=== PATIENT | male | born 1955 | race Caucasian/White ===

== ENCOUNTER 2017-02-17 20:10 | Inpatient (IN) | payer MEDICARE, MEDICAID ==
[~2017-02-17] VITALS: Ht 188 cm; Wt 72.0 kg
[~2017-02-17 20:10] MED LIST: ARIP2TAB11 PO; CITA40TA11 PO; GABA100C PO; TRAZ-143 PO
[2017-02-17] MEDS ORDERED: hydrOXYzine 25 MG tablet PO PRN (21:00)
[2017-02-17] MEDS ORDERED: magnesium hydroxide 30ml (MOM) UD suspension PO PRN (21:00)
[2017-02-17] MEDS ORDERED: mag hydrox/Alum hydrox/simeth 30ml oral suspension PO PRN (21:00)
[2017-02-17] MEDS ORDERED: traZODone 50mg tablet PO PRN (21:00)
[2017-02-17 21:57] VITALS: BP 112/69
[2017-02-18 07:19] VITALS: BP 107/61
[2017-02-18 08:31] LABS: CHOL/HDL RATIO 3.3 (0.00-4.99); CHOLESTEROL 91 MG/DL (0-200); HDL CHOLESTEROL 28 MG/DL (35-60); LDL CHOLESTEROL 60 MG/DL (50-100); TRIGLYCERIDES 65 MG/DL (20-135)
[2017-02-18] MEDS ORDERED: CITALOpram 10mg tablet PO ONE (09:30)
[2017-02-18] MEDS: acetaminophen 325mg tablet PO PRN (11:58)
[2017-02-18] MEDS: Protein Shake (high protein) 240ml (8oz) cup PO SCH ×2 (14:47→18:02)
[2017-02-18] MEDS: Protein Smoothie (high protein) 240ml (8oz) cup PO SCH ×2 (14:47→18:02)
[2017-02-18 19:46] VITALS: BP 123/55
[2017-02-19 07:25] VITALS: BP 113/62
[2017-02-19] MEDS: traZODone 50mg tablet PO SCH ×2 (08:25→21:07)
[2017-02-19] MEDS: CITALOpram 10mg tablet PO SCH (08:33)
[2017-02-19] MEDS: Protein Shake (high protein) 240ml (8oz) cup PO SCH ×3 (08:59→18:00)
[2017-02-19] MEDS: Protein Smoothie (high protein) 240ml (8oz) cup PO SCH ×3 (08:59→18:00)
[2017-02-19] MEDS: naproxen 500mg tablet PO PRN (16:41)
[2017-02-19 19:17] VITALS: BP 104/43
[2017-02-19] MEDS: acetaminophen 325mg tablet PO PRN (21:13)
[2017-02-20 07:28] VITALS: BP 99/49
[2017-02-20] MEDS: CITALOpram 10mg tablet PO SCH (07:39)
[2017-02-20] MEDS: Protein Smoothie (high protein) 240ml (8oz) cup PO SCH ×3 (08:00→17:52)
[2017-02-20] MEDS: Protein Shake (high protein) 240ml (8oz) cup PO SCH ×3 (08:53→17:52)
[2017-02-20 20:00] VITALS: BP 98/41
[2017-02-20] MEDS: traZODone 50mg tablet PO SCH (20:50)
[2017-02-20] MEDS: neomy sulf/bacitrac zn/polymixin b oint 14.2 gm tube TP SCH (20:51)
[2017-02-21 07:55] VITALS: BP 100/44
[2017-02-21] MEDS: CITALOpram 10mg tablet PO SCH (07:59)
[2017-02-21] MEDS: neomy sulf/bacitrac zn/polymixin b oint 14.2 gm tube TP SCH ×3 (08:00→20:53)
[2017-02-21] MEDS: Protein Smoothie (high protein) 240ml (8oz) cup PO SCH ×3 (08:00→18:00)
[2017-02-21] MEDS: Protein Shake (high protein) 240ml (8oz) cup PO SCH ×3 (08:00→18:00)
[2017-02-21 18:40] LABS: BASOPHILS % (AUTO) 0.2 % (0-1); EOSINOPHILS # (AUTO) 0.3 X10'3 (0-0.9); EOSINOPHILS % (AUTO) 2.6 % (0-6); HEMATOCRIT 41.3 % (42.0-52.0); HEMOGLOBIN 13.7 g/dl (14.0-17.9); LYMPHOCYTES # (AUTO) 2.4 X10'3 (1.1-4.8); LYMPHOCYTES % (AUTO) 22.3 % (21-51); MEAN CORPUSCULAR HEMOGLOBIN 29.8 PG (27.0-31.0); MEAN CORPUSCULAR HGB CONC 33.1 % (33.0-36.5); MEAN CORPUSCULAR VOLUME 90.3 FL (78-98); MEAN PLATELET VOLUME 6.2 FL (7.4-10.4); MONOCYTES # (AUTO) 0.6 X10'3 (0-0.9); MONOCYTES % (AUTO) 5.3 % (2-12); NEUTROPHILS # (AUTO) 7.6 X10'3 (1.8-7.7); NEUTROPHILS % (AUTO) 69.6 % (42-75); PLATELET COUNT 333 X10'3 (140-440); RED BLOOD COUNT 4.58 X10'6 (4.70-6.10); RED CELL DISTRIBUTION WIDTH 14.3 % (11.5-14.5); WHITE BLOOD COUNT 10.9 X10'3 (4.5-11.0)
[2017-02-21 18:53] LABS: ALANINE AMINOTRANSFERASE 43 U/L (12-78); ALBUMIN 2.5 G/DL (3.4-5.0); ALBUMIN/GLOBULIN RATIO 0.6 (1.1-1.5); ALKALINE PHOSPHATASE 104 IU/L (46-116); ANION GAP 1 (8-16); ASPARTATE AMINO TRANSFERASE 27 U/L (10-37); BILIRUBIN,TOTAL 0.3 MG/DL (0.1-1.0); BLOOD UREA NITROGEN 28 MG/DL (7-18); BUN/CREATININE RATIO 24.8 (5.4-32.0); CALCIUM 8.9 MG/DL (8.5-10.1); CHLORIDE 100 MMOL/L (99-107); CREATININE 1.13 MG/DL (0.60-1.10); GLUCOSE 133 MG/DL (70-104); POTASSIUM 4.5 MMOL/L (3.5-5.1); SODIUM 136 MMOL/L (135-145); TOTAL CARBON DIOXIDE 34.8 MMOL/L (24-32); TOTAL PROTEIN 6.7 G/DL (6.4-8.2); eGFR 66 ML/MIN
[2017-02-21 20:00] VITALS: BP 98/52
[2017-02-21] MEDS: traZODone 50mg tablet PO SCH (20:51)
[2017-02-21] MEDS: naproxen 500mg tablet PO PRN (20:52)
[2017-02-21] MEDS: cephalexin 500mg capsule PO SCH (20:52)
[2017-02-21] MEDS: aripiprazole 5mg tablet PO SCH (20:52)
[2017-02-22] MEDS: cephalexin 500mg capsule PO SCH ×4 (01:55→20:54)
[2017-02-22 08:00] VITALS: BP 99/47
[2017-02-22] MEDS: neomy sulf/bacitrac zn/polymixin b oint 14.2 gm tube TP SCH ×3 (08:00→20:56)
[2017-02-22] MEDS: Protein Smoothie (high protein) 240ml (8oz) cup PO SCH ×4 (08:00→18:00)
[2017-02-22] MEDS: CITALOpram 10mg tablet PO SCH (08:16)
[2017-02-22] MEDS: Protein Shake (high protein) 240ml (8oz) cup PO SCH ×3 (08:17→18:00)
[2017-02-22] MEDS: lactobacillus rhamnosus 10,000 MMU CELLS/CAPSULE PO SCH (17:44)
[2017-02-22 19:10] VITALS: BP 100/48
[2017-02-22] MEDS: aripiprazole 5mg tablet PO SCH (20:54)
[2017-02-22] MEDS: traZODone 50mg tablet PO SCH (20:54)
[2017-02-23] MEDS: cephalexin 500mg capsule PO SCH ×4 (02:20→20:22)
[2017-02-23] MEDS: lactobacillus rhamnosus 10,000 MMU CELLS/CAPSULE PO SCH ×2 (07:17→17:48)
[2017-02-23 08:11] VITALS: BP 93/54
[2017-02-23] MEDS: Protein Smoothie (high protein) 240ml (8oz) cup PO SCH ×3 (08:29→18:00)
[2017-02-23] MEDS: Protein Shake (high protein) 240ml (8oz) cup PO SCH ×3 (08:29→18:00)
[2017-02-23] MEDS: CITALOpram 10mg tablet PO SCH (08:30)
[2017-02-23] MEDS: neomy sulf/bacitrac zn/polymixin b oint 14.2 gm tube TP SCH ×3 (13:00→21:00)
[2017-02-23 20:00] VITALS: BP 122/55
[2017-02-23] MEDS: traZODone 50mg tablet PO SCH (20:20)
[2017-02-23] MEDS: acetaminophen 325mg tablet PO PRN (20:21)
[2017-02-23] MEDS: aripiprazole 5mg tablet PO SCH (20:22)
[2017-02-24] MEDS: cephalexin 500mg capsule PO SCH ×4 (02:30→20:20)
[2017-02-24] MEDS: neomy sulf/bacitrac zn/polymixin b oint 14.2 gm tube TP SCH ×3 (08:00→20:21)
[2017-02-24 08:17] VITALS: BP 117/61
[2017-02-24] MEDS: naproxen 500mg tablet PO PRN ×2 (08:22→16:56)
[2017-02-24] MEDS: lactobacillus rhamnosus 10,000 MMU CELLS/CAPSULE PO SCH ×2 (08:22→16:56)
[2017-02-24] MEDS: CITALOpram 10mg tablet PO SCH (08:22)
[2017-02-24] MEDS: Protein Shake (high protein) 240ml (8oz) cup PO SCH ×3 (08:25→18:00)
[2017-02-24] MEDS: Protein Smoothie (high protein) 240ml (8oz) cup PO SCH ×3 (08:25→18:00)
[2017-02-24] MEDS: acetaminophen 325mg tablet PO PRN (16:56)
[2017-02-24 20:00] VITALS: BP 99/46
[2017-02-24] MEDS: gabapentin 100mg capsule PO SCH (20:20)
[2017-02-24] MEDS: traZODone 50mg tablet PO SCH (20:20)
[2017-02-24] MEDS: aripiprazole 5mg tablet PO SCH (20:20)
[2017-02-25] MEDS: cephalexin 500mg capsule PO SCH ×4 (03:54→20:09)
[2017-02-25] MEDS: gabapentin 100mg capsule PO SCH (07:55)
[2017-02-25] MEDS: lactobacillus rhamnosus 10,000 MMU CELLS/CAPSULE PO SCH ×2 (07:55→17:09)
[2017-02-25 08:00] VITALS: BP 100/46
[2017-02-25] MEDS ORDERED: citalopram 20mg tablet PO SCH (08:00)
[2017-02-25] MEDS: neomy sulf/bacitrac zn/polymixin b oint 14.2 gm tube TP SCH ×3 (08:00→20:10)
[2017-02-25] MEDS: Protein Smoothie (high protein) 240ml (8oz) cup PO SCH ×3 (08:00→18:00)
[2017-02-25] MEDS ORDERED: duloxetine 30mg CAPSULE.DR PO SCH (08:00)
[2017-02-25] MEDS: Protein Shake (high protein) 240ml (8oz) cup PO SCH ×3 (08:00→18:00)
[2017-02-25] MEDS: gabapentin 300mg capsule PO SCH ×2 (15:57→20:10)
[2017-02-25 19:18] VITALS: BP 103/45
[2017-02-25 20:00] VITALS: BP 110/60
[2017-02-25] MEDS: traZODone 50mg tablet PO SCH (20:09)
[2017-02-25] MEDS: aripiprazole 5mg tablet PO SCH (20:09)
[2017-02-25] MEDS: acetaminophen 325mg tablet PO PRN (20:10)
[2017-02-26] MEDS: cephalexin 500mg capsule PO SCH ×4 (02:03→20:27)
[2017-02-26 07:25] VITALS: BP 91/36
[2017-02-26] MEDS: pantoprazole 40mg Tablet.DR PO SCH (07:30)
[2017-02-26] MEDS: lactobacillus rhamnosus 10,000 MMU CELLS/CAPSULE PO SCH (07:30)
[2017-02-26] MEDS: Protein Shake (high protein) 240ml (8oz) cup PO SCH ×3 (08:00→18:00)
[2017-02-26] MEDS: Protein Smoothie (high protein) 240ml (8oz) cup PO SCH ×3 (08:00→18:00)
[2017-02-26] MEDS: duloxetine 30mg CAPSULE.DR PO SCH (08:23)
[2017-02-26] MEDS: gabapentin 300mg capsule PO SCH ×3 (08:23→20:27)
[2017-02-26] MEDS: neomy sulf/bacitrac zn/polymixin b oint 14.2 gm tube TP SCH ×3 (08:24→20:32)
[2017-02-26 08:35] VITALS: BP 96/50
[2017-02-26 19:09] VITALS: BP 106/49
[2017-02-26] MEDS: aripiprazole 5mg tablet PO SCH (20:26)
[2017-02-26] MEDS: traZODone 50mg tablet PO SCH (20:27)
[2017-02-27] MEDS: cephalexin 500mg capsule PO SCH ×4 (02:00→20:09)
[2017-02-27] MEDS: lactobacillus rhamnosus 10,000 MMU CELLS/CAPSULE PO SCH ×3 (06:34→17:51)
[2017-02-27] MEDS: pantoprazole 40mg Tablet.DR PO SCH (07:09)
[2017-02-27 08:00] VITALS: BP 108/49
[2017-02-27] MEDS: neomy sulf/bacitrac zn/polymixin b oint 14.2 gm tube TP SCH ×3 (08:00→21:00)
[2017-02-27] MEDS: Protein Shake (high protein) 240ml (8oz) cup PO SCH ×4 (08:03→19:18)
[2017-02-27] MEDS: Protein Smoothie (high protein) 240ml (8oz) cup PO SCH ×4 (08:03→19:18)
[2017-02-27] MEDS: duloxetine 30mg CAPSULE.DR PO SCH (08:04)
[2017-02-27] MEDS: gabapentin 300mg capsule PO SCH ×3 (08:04→20:09)
[2017-02-27] MEDS: aripiprazole 5mg tablet PO SCH (20:09)
[2017-02-27] MEDS: traZODone 50mg tablet PO SCH (20:09)
[2017-02-27 20:10] VITALS: BP 102/49
[2017-02-28] MEDS: cephalexin 500mg capsule PO SCH ×4 (02:50→20:19)
[2017-02-28 07:11] VITALS: BP 102/42
[2017-02-28] MEDS: neomy sulf/bacitrac zn/polymixin b oint 14.2 gm tube TP SCH ×3 (08:00→21:00)
[2017-02-28] MEDS: duloxetine 30mg CAPSULE.DR PO SCH (08:08)
[2017-02-28] MEDS: lactobacillus rhamnosus 10,000 MMU CELLS/CAPSULE PO SCH ×2 (08:08→17:51)
[2017-02-28] MEDS: pantoprazole 40mg Tablet.DR PO SCH (08:08)
[2017-02-28] MEDS: gabapentin 300mg capsule PO SCH ×3 (08:08→20:19)
[2017-02-28] MEDS: Protein Smoothie (high protein) 240ml (8oz) cup PO SCH ×2 (13:29→18:00)
[2017-02-28] MEDS: Protein Shake (high protein) 240ml (8oz) cup PO SCH ×2 (13:29→18:00)
[2017-02-28 19:38] VITALS: BP 115/42
[2017-02-28] MEDS: aripiprazole 5mg tablet PO SCH (20:19)
[2017-02-28] MEDS: traZODone 50mg tablet PO SCH (20:19)
[2017-03-01] MEDS: cephalexin 500mg capsule PO SCH ×4 (02:52→20:39)
[2017-03-01] MEDS: neomy sulf/bacitrac zn/polymixin b oint 14.2 gm tube TP SCH ×3 (08:00→20:40)
[2017-03-01] MEDS: Protein Shake (high protein) 240ml (8oz) cup PO SCH ×3 (08:00→18:00)
[2017-03-01] MEDS: Protein Smoothie (high protein) 240ml (8oz) cup PO SCH ×4 (08:00→19:00)
[2017-03-01 08:22] VITALS: BP 102/55
[2017-03-01] MEDS: naproxen 500mg tablet PO PRN (08:22)
[2017-03-01] MEDS: duloxetine 30mg CAPSULE.DR PO SCH (08:24)
[2017-03-01] MEDS: acetaminophen 325mg tablet PO PRN (08:24)
[2017-03-01] MEDS: pantoprazole 40mg Tablet.DR PO SCH (08:25)
[2017-03-01] MEDS: gabapentin 300mg capsule PO SCH ×3 (08:25→20:38)
[2017-03-01] MEDS: lactobacillus rhamnosus 10,000 MMU CELLS/CAPSULE PO SCH ×2 (08:26→17:27)
[2017-03-01 19:56] VITALS: BP 102/49
[2017-03-01] MEDS: aripiprazole 5mg tablet PO SCH (20:38)
[2017-03-01] MEDS: traZODone 50mg tablet PO SCH (20:39)
[2017-03-02] MEDS: cephalexin 500mg capsule PO SCH ×2 (04:23→07:42)
[2017-03-02] MEDS: duloxetine 30mg CAPSULE.DR PO SCH (07:42)
[2017-03-02] MEDS: gabapentin 300mg capsule PO SCH ×3 (07:42→20:57)
[2017-03-02] MEDS: pantoprazole 40mg Tablet.DR PO SCH (07:42)
[2017-03-02] MEDS: lactobacillus rhamnosus 10,000 MMU CELLS/CAPSULE PO SCH ×2 (07:42→17:30)
[2017-03-02 08:00] VITALS: BP 107/54
[2017-03-02] MEDS: Protein Shake (high protein) 240ml (8oz) cup PO SCH ×3 (08:22→18:00)
[2017-03-02] MEDS: neomy sulf/bacitrac zn/polymixin b oint 14.2 gm tube TP SCH ×3 (08:22→21:00)
[2017-03-02] MEDS: Protein Smoothie (high protein) 240ml (8oz) cup PO SCH ×2 (13:00→18:00)
[2017-03-02] MEDS ORDERED: TRAZ-143 PO (15:56)
[2017-03-02] MEDS ORDERED: NEOM14.216 TP (15:56)
[2017-03-02] MEDS ORDERED: PANT40TA4 PO (15:56)
[2017-03-02] MEDS ORDERED: ARIP5TAB20 PO (15:56)
[2017-03-02] MEDS ORDERED: DULO60CA64 PO (15:56)
[2017-03-02] MEDS ORDERED: GABA300C PO (15:56)
[2017-03-02 19:00] VITALS: BP 106/54
[2017-03-02] MEDS: aripiprazole 5mg tablet PO SCH (20:57)
[2017-03-02] MEDS: traZODone 50mg tablet PO SCH (20:57)
[2017-03-03 07:20] VITALS: BP 102/44
[2017-03-03] MEDS: duloxetine 30mg CAPSULE.DR PO SCH (07:50)
[2017-03-03] MEDS: pantoprazole 40mg Tablet.DR PO SCH (07:50)
[2017-03-03] MEDS: lactobacillus rhamnosus 10,000 MMU CELLS/CAPSULE PO SCH (07:50)
[2017-03-03] MEDS: gabapentin 300mg capsule PO SCH ×2 (07:51→11:40)
[2017-03-03] MEDS: naproxen 500mg tablet PO PRN (07:51)
[2017-03-03] MEDS: acetaminophen 325mg tablet PO PRN (07:51)
[2017-03-03] MEDS: Protein Smoothie (high protein) 240ml (8oz) cup PO SCH (08:00)
[2017-03-03] MEDS: Protein Shake (high protein) 240ml (8oz) cup PO SCH (08:00)
[2017-03-03] MEDS: neomy sulf/bacitrac zn/polymixin b oint 14.2 gm tube TP SCH ×2 (08:00→11:45)
== END 2017-03-03 12:15 | disposition home or self-care (01) | DRG 885 ==
LOC: ADULT MH 20:10
PROVIDERS: ADMIT Psychiatry & Neurology Psychiatry; ATTEND Psychiatry & Neurology Psychiatry
DX: F33.2 Major depressive disorder, recurrent severe without psychotic features (principal); N17.9 Acute kidney failure, unspecified; R45.851 Suicidal ideations; E86.0 Dehydration; T33.831A Superficial frostbite of right toe(s), initial encounter; F17.210 Nicotine dependence, cigarettes, uncomplicated; Z59.0 Homelessness; X31.XXXA Exposure to excessive natural cold, initial encounter; Y93.89 Activity, other specified; Y92.89 Other specified places as the place of occurrence of the external cause; Y99.8 Other external cause status; Z91.19 Patient's noncompliance with other medical treatment and regimen
CPT/HCPCS: 36415; 80053; 80061; 84443; 85025; 87070; 87077; 87186; 93922; 93925; 97162; A6255; A6449; Q0177